=== PATIENT | female | born 1960 | race Caucasian/White ===

== ENCOUNTER 2016-05-05 15:00 | Emergency (ER) | payer OTHER ==
[~2016-05-05] VITALS: Ht 160 cm; Wt 99.1 kg
[~2016-05-05 15:00] MED LIST: ALPRAZOLAM1 MG PO; ALTACE10 M1 PO; ALTACE10 MG PO; ASPIRIN81 M1 PO; CINNAMON500 MG PO; CRANBERRY CONC500 MG PO; CYMBALTA30 MG PO; DARVOCET-N 51 TABLET PO; FISH OIL 1,0001 EAC7 PO; FISH OIL CONC1 EACH PO; FLEXERIL10 MG PO; GLIPIZIDE5 MG PO; HYDROCHLOROTH12.5 M2 PO; HYDROCHLOROTHIA25 MG PO; KOMBIGLYZE XR1 EACH PO; LEVAQUIN500 MG PO; LO-DOSE ASPIRIN81 M1 PO; MAGNESIUM OXID500 MG PO; MOBIC15 MG PO; MULTI VITAMIN; MULTIPLE VITAM1 EAC1 PO; MULTIPLE VITAM1 EAC4 PO; MULTIVITAMIN1 EAC1 PO; NEXIUM20 MG PO; NEXIUM40 MG PO; NORVASC5 MG PO; PERCOCET 5/31 TABLET PO; TOPAMAX25 MG PO; TOPROL XL100 MG PO; TRICOR145 MG PO; VITAMIN B-2100 MG PO; VITAMIN D400 INTUNI PO; XANAX XR1 MG PO; XANAX1 MG PO; ZYRTEC10 M2 PO; [UNRECOGNIZED DRUG - CODE] PO
[2016-05-05 15:23] LABS: POINT-OF-CARE METER ID UU13113778
[2016-05-05 16:33] LABS: EOSINOPHIL (%) 1.4 % (0-5); EOSINOPHIL COUNT 0.1 K/uL (0-0.3); HEMATOCRIT 45.4 % (36.0-46.0); IMMATURE GRANULOCYTE (%) 0.1 % (0.0-0.7); IMMATURE GRANULOCYTE COUNT 0.1 K/uL; MCH 29.7 PG (29.0-34.0); MCHC 34.8 G/DL (30.0-36.0); MCV 85.3 FL (83-99); MEAN PLAT.VOLUME 8.9 uM^3 (9.5-12.4); MONOCYTE (%) 6.7 % (3-12); MONOCYTE COUNT 0.6 K/uL (0-0.8); NEUTROPHIL (%) 58.8 % (45-76); NEUTROPHIL COUNT 5.4 K/uL (1.8-6.4); PLATELET COUNT 300 K/uL (156-360); RBC DIS.WIDTH-CV 13.4 % (11.8-14.6); RBC DIS.WIDTH-SD 41.4 % (39-53); RED BLOOD COUNT 5.32 M/uL (3.80-5.20); WHITE BLOOD COUNT 9.3 K/uL (4.1-10.2)
[2016-05-05 16:41] LABS: CHLORIDE 104 mEq/L (99-109); POTASSIUM 3.9 mEq/L (3.7-5.4); SODIUM 141 mEq/L (136-147)
[2016-05-05 16:43] LABS: GLUCOSE 143 mg/dL (70-99)
[2016-05-05 16:44] LABS: ANION GAP 11 MEQ/L (2-14)
[2016-05-05 16:45] LABS: TOTAL BILIRUBIN 0.3 mg/dL (0.0-1.0)
[2016-05-05 16:47] LABS: ALKALINE PHOSPHATASE 37 IU/L (3-129); GFR ESTIMATE (CALCULATED) > 59 mL/min/
[2016-05-05 16:48] LABS: UREA NITROGEN (BUN) 16 mg/dL (9-23)
[2016-05-05 17:02] LABS: ADD MIUA? YES; BILIRUBIN NEGATIVE; BLOOD NEGATIVE; COLOR YELLOW ((YELLOW)); GLUCOSE (STRIP) NEGATIVE; KETONES NEGATIVE; LEUKOCYTES MODERATE; NITRITE NEGATIVE; PROTEIN (STRIP) NEGATIVE; SPECIFIC GRAVITY 1.014 (1.000-1.030); UROBILINOGEN 0.2 MG/DL (0.2-1.0)
[2016-05-05 17:31] LABS: CRYSTALS PRESENT; EPITHELIAL CELLS 1+; MUCUS NONE SEEN; RED BLOOD CELLS RARE /HPF (0-5); UCUL ADDED? NO
[2016-05-05 17:32] LABS: BACTERIA 1+
[2016-05-05 17:33] LABS: AMORPHOUS PHOSPHATE CRYSTALS 2+
[2016-05-05 17:34] LABS: CASTS PRESENT /LPF
[2016-05-05] MEDS ORDERED: NAPROXEN500 MG PO (17:56)
[2016-05-05] MEDS ORDERED: MACROBID100 MG PO (17:56)
[2016-05-05 18:12] VITALS: BP 114/63
== END 2016-05-05 18:14 | disposition home or self-care (01) ==
LOC: EME 15:00
PROVIDERS: Physician Assistant
DX: N39.0 Urinary tract infection, site not specified (principal); E78.5 Hyperlipidemia, unspecified; I10 Essential (primary) hypertension; Z87.442 Personal history of urinary calculi; Z96.653 Presence of artificial knee joint, bilateral
CPT/HCPCS: 74020; 80053; 81003; 82948; 85025; 99281; 99284